=== PATIENT | male | born 1985 | race Caucasian/White ===

== ENCOUNTER 2018-03-18 00:52 | Emergency (ER) | payer BC ==
[2018-03-18] MEDS ORDERED: Ondansetron ODT TAB* 4 MG SL ONE (00:53)
[2018-03-18] MEDS ORDERED: LORazepam TAB(*) 1 MG PO ONE (00:58)
--- NOTE | 2018-03-18 02:37 | ED ---
Substance Abuse/Use - HPI Summary HPI Summary: This is kathy Petersonin documenting for attending Dr. Arsenio Toure MD. A 33 y/o male KHUSHBU presents to ED s/p ingestion of edible. According to the patient, he was given a small piece of chocolate by someone. He stated that he took it because it had something in it. He noted that he was feeling okay before the edible, however, currently he feels anxious, has vomit, nausea and is terrified. He has had experiences with edibles before. Patient was dry heaving upon arrival. - History Of Current Complaint Chief Complaint: EDSubstanceAbuse Stated Complaint: OVERDOSE Time Seen by Provider: 03/18/18 00:53 Hx Obtained From: Patient Onset/Duration of Drug/ETOH Abuse: Hours Ingestion History: Type/Name Of Drug - Edible. Not sure of what drug. Overdose Characteristics: Oral - Edibkle Character: Anxious Aggravating Factor(s): Nothing Alleviating Factor(s): Nothing Associated Signs And Symptoms: Nausea, Vomiting PMH/Surg Hx/FS Hx/Imm Hx Respiratory History: Denies: Other Respiratory Problems/Disorders Psychiatric History: Denies: Hx Anxiety Infectious Disease History: No Infectious Disease History: Denies: Traveled Outside the [place] in Last 30 Days - Family History Known Family History: Negative: Diabetes - Social History Alcohol Use: Occasionally Substance Use Type: Reports: Marijuana Hx Tobacco Use: No Smoking Status (MU): Never Smoked Tobacco Review of Systems Negative: Fever Positive: Vomiting, Nausea, Other - POSITIVE: Dry heaving Positive: Anxious All Other Systems Reviewed And Are Negative: Yes Physical Exam - Summary Physical Exam Summary: Appearance: Well-appearing, Well-nourished, lying in bed comfortably Skin: Warm, dry, no obvious rash Eyes: sclera anicteric, no conjunctival pallor ENT: mucous membranes moist, pharynx appears normal Neck: Supple, nontender Respiratory: Clear to auscultation, no signs of respiratory distress Cardiovascular: Normal S1, S2. No murmurs. Normal distal pulses in tibial and radial bilaterally. Abdomen: Soft, nontender, normal active bowel sounds present Musculoskeletal: Normal, Strength/ROM Intact Neurological: A&Ox3, awake and alert, mentation is normal, speech is fluent and appropriate Psychiatric: affect is normal, does not appear anxious or depressed. Anxious but not overtly psychotic. Triage Information Reviewed: Yes Vital Signs On Initial Exam: Initial Vitals Pulse Resp BP Pulse Ox 102 14 146/74 97 03/18/18 00:59 03/18/18 00:59 03/18/18 00:59 03/18/18 00:59 Vital Signs Reviewed: Yes Diagnostics - Vital Signs Vital Signs Temp Pulse Resp BP Pulse Ox 03/18/18 01:29 84 16 121/71 99 03/18/18 01:02 98.1 F 116 17 146/74 98 03/18/18 01:01 103 11 96 03/18/18 00:59 102 14 146/74 97 - Laboratory Lab Statement: Any lab studies that have been ordered have been reviewed, and results considered in the medical decision making process. - EKG 2055 Cardiac Rate: Tachycardia - 104 BPM EKG Rhythm: Sinus Tachycardia Re-Evaluation - Re-Evaluation First Eval Re-Evaluation Time: 02:41 Change: Improved Comment: Patient is much better. Awake, alert and oriented. Discharge - Sign-Out/Discharge Documenting (check all that apply): Patient Departure - DISCHARGE. - Discharge Plan Condition: Stable Disposition: HOME Referrals: Anay Maki MD [Primary Care Provider] - 2 Days (FOLLOW UP WITH PCP IN 2-3 DAYS) Additional Instructions: RETURN TO ED FOR ANY NEW OR WORSENING SYMPTOMS.
[2018-03-18 04:29] VITALS: BP 110/63
== END 2018-03-18 04:30 | disposition home or self-care (01) ==
LOC: ED 00:52
DX: F41.9 Anxiety disorder, unspecified (principal); R11.2 Nausea with vomiting, unspecified; T50.905A Adverse effect of unspecified drugs, medicaments and biological substances, initial encounter; Y92.9 Unspecified place or not applicable; R00.0 Tachycardia, unspecified
CPT/HCPCS: 99282